=== PATIENT | male | born 1940 | race Caucasian/White ===

== ENCOUNTER 2019-07-23 11:55 | Inpatient (IN) | payer OTHER ==
[2019-07-23 15:45] VITALS: BMI 24.0
--- NOTE | 2019-07-23 17:11 | HP ---
CIWA Score Nausea/Vomitin-No Nausea/No Vomiting Muscle Tremors: 5 Anxiety: 4-Mod. Anxious/Guarded Agitation: 3 Paroxysmal Sweats: 1-Minimal Palms Moist Orientation: 0-Oriented Tacttile Disturbances: 1-Very Mild Itch/Numbness (itching b/l calves) Auditory Disturbances: 0-None Visual Disturbances: 2-Mild Sensitivity Headache: 0-None Present CIWA-Ar Total Score: 16 - Admission Criteria OASAS Guidelines: Admission for Medically Managed Detox: Requires at least one of the followin. CIWA greater than 12 2. Seizures within the past 24 hours 3. Delirium tremens within the past 24 hours 4. Hallucinations within the past 24 hours 5. Acute intervention needed for co occurring medical disorder 6. Acute intervention needed for co occurring psychiatric disorder 7. Severe withdrawal that cannot be handled at a lower level of care (continued vomiting, continued diarrhea, abnormal vital signs) requiring intravenous medication and/or fluids 8. Admission [facility] Chief Complaint: detox from EtOH Allergies/Adverse Reactions: Allergies Allergy/AdvReac Type Severity Reaction Status Date / Time penicillin V [Penicillin V] AdvReac Mild Hives Verified 07/23/19 15:39 History of Present Illness: 78M w/ pmh of DM, HTN presenting to [facility] for detox from EtOH. Was seen at [facility] 2d prior for fall after intake of vodka + klonopin, +LOC, expressing SI. Was recommended to go to detox. Drinks 1.5pint vodka every 2d for 1-2mo. Last drink ~2300 yesterday. Drinks after breakfast. First drink at 17y/o. Regular drinker since 42yo. Klonopin TID(2mg) rx for a "long time". Distant MJ usage. Denies heroin, opoids, IVDU. Smoked 1ppd, but quit 7ys prior. Blacked out x30-40. Has developed tremors. Denies seizures. Last detox at [facility] 7-8ys prior. Denies SI, HI. Briefly incarcerated in 1960s for loitering. Did not take HTN meds for q5nafke. Locked out of his [place] apt which he was renting from his friend. Financial support through [employer]. Repeat BP 172/89, HR 84 - Ebola screening Have you traveled outside of the country in the last 21 days: No Have you had contact with anyone from an Ebola affected area: No Do you have a fever: No - Review of Systems Constitutional: Weight Stable EENT: denies: Recent change in vision Respiratory: reports: Shortness of Breath (with walking >1block). denies: Cough Cardiac: denies: Chest Pain, Palpitations, Chest Tightness GI: denies: Abdominal Distended, Constipated, Diarrhea, Nausea, Vomiting : denies: Dysuria, Urgency Musculoskeletal: reports: Back Pain Neuro: denies: Headache, Seizure Patient History - Patient Medical History Hx Anemia: No Hx Asthma: No Hx Chronic Obstructive Pulmonary Disease (COPD): No Hx Cancer: No Hx Cardiac Disorders: No Hx Congestive Heart Failure: No Hx Hypertension: Yes (currently on treatment) Hx Hypercholesterolemia: No Hx Pacemaker: No HX Cerebrovascular Accident: No Hx Seizures: No Hx Dementia: No Hx Diabetes: Yes (NIDDM) Hx Gastrointestinal Disorders: Yes Hx Liver Disease: No Hx Genitourinary Disorders: No Hx Sexually Transmitted Disorders: Yes (gonorrhea) Hx Renal Disease (ESRD): No Hx Thyroid Disease: No Hx Human Immunodeficiency Virus (HIV): No (negative in 1992) Hx Hepatitis C: No Hx Depression: Yes (currently on treatment) Hx Suicide Attempt: No Hx Bipolar Disorder: No Hx Schizophrenia: No - Patient Surgical History Past Surgical History: Yes Hx Neurologic Surgery: No Hx Cataract Extraction: No Hx Cardiac Surgery: No Hx Lung Surgery: No Hx Breast Surgery: No Hx Breast Biopsy: No Hx Abdominal Surgery: No Hx Appendectomy: No Hx Cholecystectomy: No Hx Genitourinary Surgery: No Hx Section: No Hx Orthopedic Surgery: Yes (tonsillectomy at age of 16 years) Other Surgical History: TONSILLECTOMY Anesthesia Reaction: No - PPD History Date: 08/25/12 Results: 0 MM - Smoking Cessation Smoking history: Former smoker Have you smoked in the past 12 months: Yes Aproximately how many cigarettes per day: 20 Hx Chewing Tobacco Use: No Initiated information on smoking cessation: No - Substances abused Alcohol Substance route: Oral Frequency: Daily Amount used: 1-2 pints Vodka Age of first use: 17 Date of last use: 07/22/19 Admission Physical Exam BHS - Vital Signs Vital Signs: Vital Signs - 24 hr 07/23/19 07/23/19 15:35 16:39 Temperature 98.6 F 98.6 F Pulse Rate 92 H 92 H Respiratory 18 18 Rate Blood Pressure 199/89 H 199/89 H - Physical General Appearance: Yes: Thin, Tremorous. No: Intoxicated HEENTM: No: Pale Conjunctivae R, Pale Conjunctivae L, Scleral Ictenus R, Scleral Ictenus L Respiratory: Yes: Chest Non-Tender, Lungs Clear, No Respiratory Distress, No Accessory Muscle Use Neck: Yes: Supple, Trachea in good position Cardiology: Yes: Regular Rate, S1, S2. No: Irregularly Irregular Abdominal: Yes: Soft. No: Distended, Tenderness Musculoskeletal: Yes: full range of Motion Extremities: No: Calf Tenderness Neurological: Yes: Fully Oriented, Alert Integumentary: Yes: Dry, Warm Breathalyzer - Breathalyzer Breathalyzer: 0 Urine Drug Screen - Test Device Lot number: [id number] Expiration date: 04/03/21 - Control Is test valid?: Yes - Results Drug screen NEGATIVE: Yes Inpatient Rehab Admission - Rehab Decision to Admit Inpatient rehab admission?: No
--- NOTE | 2019-07-23 17:31 | PN ---
"Teaching Attending Note Name of Resident: Bubba Mulligan ATTENDING PHYSICIAN STATEMENT I saw and evaluated the patient. I reviewed the resident's note and discussed the case with the resident. I agree with the resident's findings and plan as documented. SUBJECTIVE: 78 M here requesting detox for etoh use , reports 1.5 pint vodka every 2 days for the last 1-2 months , reports numerous blackouts after taking klonopin as well , taken to [facility] , denies pain at this time , latest use yesterday evening , reports tremors if not drinking , denies seizures, starts drinking in the mornings. Prior detox [facility] 7- 8 yrs ago cannabis use in the past quit tobacco 7 years ago pmhx : DM, HTN , seen at [facility] 2d prior for fall and expressing SI, denies current SI / HI . reports non compliance w/ BP meds Repeat BP 172/89, HR 84 OBJECTIVE: wnwd , anxious , agitated , tremulous CIWA=16 Search Terms: jean-claude phipps, 1940 Search Date: 07/23/2019 05:29:25 PM The Drug Utilization Report below displays all of the controlled substance prescriptions, if any, that your patient has filled in the last twelve months. The information displayed on this report is compiled from pharmacy submissions to the Department, and accurately reflects the information as submitted by the pharmacies. This report was requested by: Katia Montes | Reference #: [id number] Others' Prescriptions Patient Name: Jean-Claude Phipps Date: 1940 Address: [place] [address] Sex: Male Rx Written Rx Dispensed Drug Quantity Days Supply Prescriber Name 07/11/2019 07/12/2019 clonazepam 0.5 mg tablet 90 30 Shannon Hutton MD 06/13/2019 06/13/2019 clonazepam 0.5 mg tablet 90 30 Shannon Hutton MD 05/12/2019 05/15/2019 clonazepam 0.5 mg tablet 90 30 Shannon Hutton MD 04/15/2019 04/15/2019 clonazepam 0.5 mg tablet 90 30 Shannon Hutton MD 03/15/2019 03/16/2019 clonazepam 0.5 mg tablet 90 30 Shannon Hutton MD 01/15/2019 02/13/2019 clonazepam 0.5 mg tablet 90 30 BarthvivianaShannon MD 01/10/2019 01/14/2019 clonazepam 0.5 mg tablet 90 30 BarthvivianaShannon MD 12/15/2018 12/16/2018 clonazepam 0.5 mg tablet 90 30 BarthvivianaShannon MD 11/14/2018 11/15/2018 clonazepam 0.5 mg tablet 90 30 AnniShannon MD 10/15/2018 10/15/2018 clonazepam 0.5 mg tablet 90 30 BarthvivianaShannon MD 09/14/2018 09/14/2018 clonazepam 0.5 mg tablet 90 30 AnniShannon MD 08/14/2018 08/14/2018 clonazepam 0.5 mg tablet 90 30 Shannon Hutton MD ASSESSMENT AND PLAN: ETOH abuse d/o - Librium taper . Meds verified w/ pharmacy"
[2019-07-23] MEDS ORDERED: MAG HYDROX/AL HYDROX/SIMETH 30 ML UNIT-DOSE CUP PO PRN (18:01)
[2019-07-23] MEDS ORDERED: hydrOXYzine PAMOATE 25 MG CAPSULE (FP) PO PRN (18:01)
[2019-07-23] MEDS ORDERED: MENTHOL/PHENOL 1 EACH UD MM PRN (18:01)
[2019-07-23] MEDS ORDERED: MAGNESIUM CITRATE 300 ML BOTTLE PO PRN (18:01)
[2019-07-23] MEDS ORDERED: METHOCARBAMOL 500 MG TABLET PO PRN (18:01)
[2019-07-23] MEDS ORDERED: chlordiazePOXIDE HCL 25 MG CAPSULE PO ONE (18:01)
[2019-07-23] MEDS ORDERED: chlordiazePOXIDE HCL 10 MG CAPSULE PO PRN (18:01)
[2019-07-23] MEDS ORDERED: ACETAMINOPHEN 325 MG TABLET (FP) PO PRN ×2 (18:01)
[2019-07-23] MEDS ORDERED: MAGNESIUM HYDROX 2400MG/30ML ORAL SUSPENSION 30 ML CUP PO PRN (18:01)
[2019-07-23] MEDS: ASPIRIN COATED 81 MG TABLET.EC PO SCH (19:57)
[2019-07-23] MEDS: chlordiazePOXIDE HCL 25 MG CAPSULE PO SCH (22:42)
[2019-07-23] MEDS: MELATONIN 5 MG TABLETS PO PRN (22:42)
[2019-07-23] MEDS: THIAMINE HCL 100 MG TABLET (FP) PO SCH (22:42)
[2019-07-23] MEDS: ATORVASTATIN CA 10 MG TABLET (FP) PO SCH (22:42)
[2019-07-23] MEDS: FUROSEMIDE 20 MG TABLET (FP) PO SCH (23:07)
[2019-07-23] MEDS: ATENOLOL 25 MG TABLET (FP) PO SCH (23:08)
[2019-07-24] MEDS: MELATONIN 5 MG TABLETS PO PRN (00:50)
[2019-07-24] MEDS: chlordiazePOXIDE HCL 25 MG CAPSULE PO SCH ×3 (05:34→22:34)
[2019-07-24] MEDS: hydrALAZINE HCL 25 MG TABLET (FP) PO SCH ×4 (07:00→22:34)
[2019-07-24] MEDS: ATENOLOL 25 MG TABLET (FP) PO SCH ×2 (09:18→22:34)
[2019-07-24] MEDS: HYDROCHLOROTHIAZIDE 12.5 MG CAPSULE (FP) PO SCH (09:18)
[2019-07-24] MEDS: amLODIPine BESYLATE 10 MG TABLET (FP) PO SCH (09:18)
[2019-07-24] MEDS: PRENATAL VITAMINS W/ FOLIC ACID TABLET (FP) PO SCH (09:18)
[2019-07-24] MEDS: ASPIRIN COATED 81 MG TABLET.EC PO SCH (09:19)
[2019-07-24] MEDS: BISMUTH SUBSALICYLATE 524 MG/30 ML UD PO PRN (09:19)
[2019-07-24] MEDS: LOSARTAN POTASSIUM 50 MG TABLET (FP) PO SCH (09:19)
[2019-07-24] MEDS ORDERED: PATIENT'S OWN MEDICATION (NON-FORMULARY) (Losartan/Hydrochlorothiazide [Losartan-Hctz 100- PO SCH (10:00)
--- NOTE | 2019-07-24 10:05 | CONSULT ---
[facility] Psychiatric Consult - Data Date of interview: 07/24/19 Admission source: [facility] Identifying data: Patient is a 78 year old single male, without children, unemployed, and homeless. This is patient's first admission to detox at [facility]. Patient admitted to for alcohol dependence. Substance Abuse History: - Smoking Cessation. Smoking history: Former smoker. Have you smoked in the past 12 months: Yes. Aproximately how many cigarettes per day: 20. Hx Chewing Tobacco Use: No. Initiated information on smoking cessation: No. - Substances abused. Alcohol. Substance route: Oral. Frequency: Daily. Amount used: 1-2 pints Vodka. Age of first use: 17. Date of last use: 07/22/19 Medical History: hypertension, diabetes, gonorrhea, tonsillectomy Psychiatric History: Patient reports history of multiple psychiatric hospitalizations ([facility], [facility], and a state facility in [place]) secondary to lack of housing but states that he is suicidal so that he can be admitted. Stated that he was living in [facility] but decided to leave a couple days ago due to his disappointment with the facility. He reports being prescribed remeron 45mg HS but has not taken the medication in several days. Patient denies history of suicide attempt, auditory/ visual hallucinations and paranoid ideation. At present patient reports stable mood but is experiencing difficulty sleeping. Physical/Sexual Abuse/Trauma History: denies. Mental Status Exam - Mental Status Exam Alert and Oriented to: Time, Place, Person Cognitive Function: Good Patient Appearance: Well Groomed Mood: Euthymic Affect: Mood Congruent Patient Behavior: Cooperative Speech Pattern: Appropriate Voice Loudness: Normal Thought Process: Goal Oriented Thought Disorder: Not Present Hallucinations: Denies Suicidal Ideation: Denies Homicidal Ideation: Denies Insight/Judgement: Poor Sleep: Poorly Appetite: Fair Muscle strength/Tone: Normal Gait/Station: Normal Psychiatric Findings - Problem List ([place] 1, 2,3) (1) Alcohol-induced mood disorder Current Visit: Yes Status: Suspected (2) Alcohol dependence Current Visit: Yes Status: Acute (3) Alcohol-induced sleep disorder Current Visit: Yes Status: Acute - Initial Treatment Plan Initial Treatment Plan: Psychoeducation provided. Rehab in progress. Will order Remeron 15mg HS. Benefits and side effects discussed. Verbal consent given.
[2019-07-24 10:10] LABS: HEMATOCRIT 32.5 % (35.4-49); HEMOGLOBIN 11.2 GM/dL (11.7-16.9); MCH 29.4 pg (25.7-33.7); MCHC 34.5 g/dl (32.0-35.9); MEAN CELL VOLUME 85.3 fl (80-96); MEAN PLT VOLUME 9.2 fl (7.5-11.1); PLATELET COUNT 197 K/MM3 (134-434); RBC 3.81 M/mm3 (4.00-5.60); WHITE BLOOD COUNT 4.7 K/mm3 (4.0-10.0)
[2019-07-24 10:21] LABS: ALBUMIN 3.6 g/dl (3.4-5.0); BILIRUBIN,TOTAL 0.5 mg/dL (0.2-1); BLOOD UREA NITROGEN 17.6 mg/dL (7-18); CALCIUM 8.4 mg/dL (8.5-10.1); CREATININE 1.2 mg/dL (0.55-1.3); POTASSIUM 4.1 mmol/L (3.5-5.1); TOT PROT 6.6 g/dl (6.4-8.2)
--- NOTE | 2019-07-24 11:21 | PN ---
S CIWA - CIWA Score Nausea/Vomitin Muscle Tremors: 2 Anxiety: 2 Agitation: 2 Paroxysmal Sweats: 1-Minimal Palms Moist Orientation: 0-Oriented Tacttile Disturbances: 1-Very Mild Itch/Numbness Auditory Disturbances: 0-None Visual Disturbances: 0-None Headache: 2-Mild CIWA-Ar Total Score: 12 BHS Progress Note (SOAP) Subjective: alert,irritable,anxious,tremor,pain in body Objective: 07/24/19 11:20 Vital Signs Temperature 98.2 F 07/24/19 09:45 Pulse Rate 76 07/24/19 09:45 Respiratory Rate 18 07/24/19 09:45 Blood Pressure 141/79 07/24/19 09:45 O2 Sat by Pulse Oximetry (%) Laboratory Last Values WBC 4.7 K/mm3 (4.0-10.0) 07/24/19 07:00 RBC 3.81 M/mm3 (4.00-5.60) L 07/24/19 07:00 Hgb 11.2 GM/dL (11.7-16.9) L 07/24/19 07:00 Hct 32.5 % (35.4-49) L 07/24/19 07:00 MCV 85.3 fl (80-96) 07/24/19 07:00 MCH 29.4 pg (25.7-33.7) 07/24/19 07:00 MCHC 34.5 g/dl (32.0-35.9) 07/24/19 07:00 RDW 14.0 % (11.9-15.9) 07/24/19 07:00 Plt Count 197 K/MM3 (134-434) 07/24/19 07:00 MPV 9.2 fl (7.5-11.1) 07/24/19 07:00 Sodium 137 mmol/L (136-145) 07/24/19 07:00 Potassium 4.1 mmol/L (3.5-5.1) 07/24/19 07:00 Chloride 104 mmol/L (98-107) 07/24/19 07:00 Carbon Dioxide 28 mmol/L (21-32) 07/24/19 07:00 Anion Gap 5 MMOL/L (8-16) L 07/24/19 07:00 BUN 17.6 mg/dL (7-18) 07/24/19 07:00 Creatinine 1.2 mg/dL (0.55-1.3) 07/24/19 07:00 Est GFR (CKD-EPI)AfAm 66.73 07/24/19 07:00 Est GFR (CKD-EPI)NonAf 57.57 07/24/19 07:00 POC Glucometer 127 UNITS (80-120) 07/24/19 05:32 Random Glucose 134 mg/dL (74-106) H 07/24/19 07:00 Calcium 8.4 mg/dL (8.5-10.1) L 07/24/19 07:00 Total Bilirubin 0.5 mg/dL (0.2-1) 07/24/19 07:00 AST 21 U/L (15-37) 07/24/19 07:00 ALT 30 U/L (13-61) 07/24/19 07:00 Alkaline Phosphatase 59 U/L (45-117) 07/24/19 07:00 Total Protein 6.6 g/dl (6.4-8.2) 07/24/19 07:00 Albumin 3.6 g/dl (3.4-5.0) 07/24/19 07:00 Assessment: 07/24/19 11:21 withdrawal symptom Plan: continue detox librium regimen,bgm monitoring
--- NOTE | 2019-07-24 14:14 | EKG ---
Test Reason : Blood Pressure : / mmHG Vent. Rate : 081 BPM Atrial Rate : 081 BPM P-R Int : 164 ms QRS Dur : 142 ms QT Int : 424 ms P-R-T Axes : 065 259 045 degrees QTc Int : 492 ms SINUS RHYTHM WITH FREQUENT PREMATURE VENTRICULAR COMPLEXES RIGHT BUNDLE BRANCH BLOCK ABNORMAL ECG NO PREVIOUS ECGS AVAILABLE Confirmed by ZAHIRA BARRY MD ([id number]) on 07/24/2019 2:14:10 PM Referred By: Confirmed By:ZAHIRA BARRY MD
[2019-07-24] MEDS: FUROSEMIDE 20 MG TABLET (FP) PO SCH ×2 (15:49→22:34)
[2019-07-24] MEDS ORDERED: PSYLLIUM 5.85 GM PACKET PO SCH (21:15)
[2019-07-24] MEDS ORDERED: MIRTAZAPINE 30 MG TABLET (FP) PO SCH (22:00)
[2019-07-24] MEDS: ATORVASTATIN CA 10 MG TABLET (FP) PO SCH (22:34)
[2019-07-24] MEDS: MIRTAZAPINE 15 MG TABLET (FP) PO SCH (22:34)
[2019-07-24] MEDS: THIAMINE HCL 100 MG TABLET (FP) PO SCH (22:34)
[2019-07-24] MEDS: PSYLLIUM 5.85 GM PACKET PO SCH (23:17)
--- NOTE | 2019-07-25 05:12 | PN ---
BHS Progress Note Note: Was c/o loose, watery stools unrelated to withdrawal. States at home takes fiber when this occurs and is very effective. Abd distended, soft/NT/BS+. Denies vomiting. Plan: metamucil in q.a.m. and reeval
[2019-07-25] MEDS: chlordiazePOXIDE 5 MG CAPSULE PO SCH ×3 (06:10→23:00)
[2019-07-25] MEDS: hydrALAZINE HCL 25 MG TABLET (FP) PO SCH ×3 (06:10→22:59)
[2019-07-25] MEDS: HYDROCHLOROTHIAZIDE 12.5 MG CAPSULE (FP) PO SCH (10:13)
[2019-07-25] MEDS: ATENOLOL 25 MG TABLET (FP) PO SCH ×2 (10:13→22:59)
[2019-07-25] MEDS: LOSARTAN POTASSIUM 50 MG TABLET (FP) PO SCH (10:13)
[2019-07-25] MEDS: PRENATAL VITAMINS W/ FOLIC ACID TABLET (FP) PO SCH (10:13)
[2019-07-25] MEDS: amLODIPine BESYLATE 10 MG TABLET (FP) PO SCH (10:13)
[2019-07-25] MEDS: ASPIRIN COATED 81 MG TABLET.EC PO SCH (10:13)
--- NOTE | 2019-07-25 11:03 | PN ---
S CIWA - CIWA Score Nausea/Vomitin-No Nausea/No Vomiting Muscle Tremors: None Anxiety: 3 Agitation: 2 Paroxysmal Sweats: 3 Orientation: 0-Oriented Tacttile Disturbances: 0-None Auditory Disturbances: 0-None Visual Disturbances: 0-None Headache: 2-Mild CIWA-Ar Total Score: 10 S Progress Note (SOAP) Subjective: c/o anxiety, headache, and sweats. Objective: 07/25/19 11:02 Vital Signs 07/25/19 07/25/19 07/25/19 03:30 06:00 09:38 Temperature 97.7 F 97.3 F L Pulse Rate 70 67 Respiratory 18 18 18 Rate Blood Pressure 110/55 L 130/66 Lab Results WBC 4.7 K/mm3 (4.0-10.0) 07/24/19 07:00 RBC 3.81 M/mm3 (4.00-5.60) L 07/24/19 07:00 Hgb 11.2 GM/dL (11.7-16.9) L 07/24/19 07:00 Hct 32.5 % (35.4-49) L 07/24/19 07:00 MCV 85.3 fl (80-96) 07/24/19 07:00 MCHC 34.5 g/dl (32.0-35.9) 07/24/19 07:00 RDW 14.0 % (11.9-15.9) 07/24/19 07:00 Plt Count 197 K/MM3 (134-434) 07/24/19 07:00 Sodium 137 mmol/L (136-145) 07/24/19 07:00 Potassium 4.1 mmol/L (3.5-5.1) 07/24/19 07:00 Chloride 104 mmol/L (98-107) 07/24/19 07:00 Carbon Dioxide 28 mmol/L (21-32) 07/24/19 07:00 Anion Gap 5 MMOL/L (8-16) L 07/24/19 07:00 BUN 17.6 mg/dL (7-18) 07/24/19 07:00 Creatinine 1.2 mg/dL (0.55-1.3) 07/24/19 07:00 Random Glucose 134 mg/dL (74-106) H 07/24/19 07:00 Calcium 8.4 mg/dL (8.5-10.1) L 07/24/19 07:00 Labs noted. Assessment: 07/25/19 11:02 AOX3, in no acute distress. Full ROM, ambulating in the unit. Withdrawal symptoms. Plan: continue detox.
[2019-07-25] MEDS: FUROSEMIDE 20 MG TABLET (FP) PO SCH ×2 (12:51→23:41)
[2019-07-25] MEDS: BISMUTH SUBSALICYLATE 524 MG/30 ML UD PO PRN (14:21)
[2019-07-25] MEDS: PSYLLIUM 5.85 GM PACKET PO SCH (16:05)
[2019-07-25] MEDS: IBUPROFEN 400 MG TABLET (FP) PO PRN (17:14)
[2019-07-25] MEDS: MIRTAZAPINE 15 MG TABLET (FP) PO SCH (22:59)
[2019-07-25] MEDS: ATORVASTATIN CA 10 MG TABLET (FP) PO SCH (22:59)
[2019-07-25] MEDS: THIAMINE HCL 100 MG TABLET (FP) PO SCH (22:59)
[2019-07-26] MEDS ORDERED: chlordiazePOXIDE HCL 10 MG CAPSULE PO PRN
[2019-07-26] MEDS: hydrALAZINE HCL 25 MG TABLET (FP) PO SCH ×3 (06:17→22:08)
[2019-07-26] MEDS: chlordiazePOXIDE HCL 10 MG CAPSULE PO SCH ×3 (06:18→22:07)
[2019-07-26] MEDS: IBUPROFEN 400 MG TABLET (FP) PO PRN ×3 (07:04→20:58)
[2019-07-26] MEDS: amLODIPine BESYLATE 10 MG TABLET (FP) PO SCH (10:21)
[2019-07-26] MEDS: ASPIRIN COATED 81 MG TABLET.EC PO SCH (10:21)
[2019-07-26] MEDS: PSYLLIUM 5.85 GM PACKET PO SCH (10:21)
[2019-07-26] MEDS: ATENOLOL 25 MG TABLET (FP) PO SCH ×2 (10:21→23:31)
[2019-07-26] MEDS: LOSARTAN POTASSIUM 50 MG TABLET (FP) PO SCH (10:21)
[2019-07-26] MEDS: PRENATAL VITAMINS W/ FOLIC ACID TABLET (FP) PO SCH (10:21)
[2019-07-26] MEDS: HYDROCHLOROTHIAZIDE 12.5 MG CAPSULE (FP) PO SCH (10:21)
[2019-07-26] MEDS: FUROSEMIDE 20 MG TABLET (FP) PO SCH ×2 (13:05→22:09)
--- NOTE | 2019-07-26 15:20 | PN ---
[facility] CIWA - CIWA Score Nausea/Vomitin-No Nausea/No Vomiting Muscle Tremors: None Anxiety: 3 Agitation: 2 Paroxysmal Sweats: 2 Orientation: 0-Oriented Tacttile Disturbances: 0-None Auditory Disturbances: 0-None Visual Disturbances: 0-None Headache: 0-None Present CIWA-Ar Total Score: 7 S Progress Note (SOAP) Subjective: Body ache, interrupted sleep Objective: 07/26/19 15:15 Last Vital Signs Temp Pulse Resp BP Pulse Ox 98.2 F 73 18 127/62 07/26/19 13:21 07/26/19 13:21 07/26/19 13:21 07/26/19 13:21 Laboratory Tests 07/23/19 07/24/19 07/24/19 18:29 05:32 07:00 WBC 4.7 RBC 3.81 L Hgb 11.2 L Hct 32.5 L MCV 85.3 MCH 29.4 MCHC 34.5 RDW 14.0 Plt Count 197 MPV 9.2 Sodium Potassium Chloride Carbon Dioxide Anion Gap BUN Creatinine Est GFR (CKD-EPI)AfAm Est GFR (CKD-EPI)NonAf POC Glucometer 130 127 Random Glucose Calcium Total Bilirubin AST ALT Alkaline Phosphatase Total Protein Albumin RPR Titer 07/24/19 07/24/19 07/24/19 07:00 07:00 16:55 WBC RBC Hgb Hct MCV MCH MCHC RDW Plt Count MPV Sodium 137 Potassium 4.1 Chloride 104 Carbon Dioxide 28 Anion Gap 5 L BUN 17.6 Creatinine 1.2 Est GFR (CKD-EPI)AfAm 66.73 Est GFR (CKD-EPI)NonAf 57.57 POC Glucometer 182 Random Glucose 134 H Calcium 8.4 L Total Bilirubin 0.5 AST 21 ALT 30 Alkaline Phosphatase 59 Total Protein 6.6 Albumin 3.6 RPR Titer Nonreactive 07/25/19 07/26/19 06:09 06:16 WBC RBC Hgb Hct MCV MCH MCHC RDW Plt Count MPV Sodium Potassium Chloride Carbon Dioxide Anion Gap BUN Creatinine Est GFR (CKD-EPI)AfAm Est GFR (CKD-EPI)NonAf POC Glucometer 164 180 Random Glucose Calcium Total Bilirubin AST ALT Alkaline Phosphatase Total Protein Albumin RPR Titer Labs reviewed: hyperglycemia r/t DM, mild anemia note Assessment: 07/26/19 15:16 Withdrawal sxs Mild anemia and hyperglycemia r/t DM Plan: Continue detox Encouraged PO water intake Scheduled for discharge tomorrow Mild anemia: most likely due to alcoholism, encouraged abstinence, follow up with PCP for management DMT2 with hyperglycemia: continue diabetic regimen, follow up with PCP for management of all medical problems
[2019-07-26 22:00] VITALS: TEMP 97.7
[2019-07-26] MEDS: ATORVASTATIN CA 10 MG TABLET (FP) PO SCH (22:07)
[2019-07-26] MEDS: MIRTAZAPINE 15 MG TABLET (FP) PO SCH (22:08)
[2019-07-26] MEDS: THIAMINE HCL 100 MG TABLET (FP) PO SCH (22:08)
[2019-07-27] MEDS ORDERED: chlordiazePOXIDE HCL 10 MG CAPSULE PO ONE (05:00)
[2019-07-27] MEDS: hydrALAZINE HCL 25 MG TABLET (FP) PO SCH (05:44)
[2019-07-27 06:50] VITALS: BP 118/55; PULSE 73
--- NOTE | 2019-07-27 09:21 | DS ---
[facility] Detox Discharge Summary Admission Date: 07/23/19 Discharge Date: 07/27/19 - History Present History: Alcohol Dependence - Physical Exam Results Vital Signs: Vital Signs Temperature 97.7 F 07/27/19 06:00 Pulse Rate 73 07/27/19 06:00 Respiratory Rate 18 07/27/19 06:00 Blood Pressure 118/55 L 07/27/19 06:00 O2 Sat by Pulse Oximetry (%) Pertinent Admission Physical Exam Findings: [facility] Laboratory Tests 07/23/19 07/24/19 07/24/19 18:29 05:32 07:00 WBC 4.7 RBC 3.81 L Hgb 11.2 L Hct 32.5 L MCV 85.3 MCH 29.4 MCHC 34.5 RDW 14.0 Plt Count 197 MPV 9.2 Sodium Potassium Chloride Carbon Dioxide Anion Gap BUN Creatinine Est GFR (CKD-EPI)AfAm Est GFR (CKD-EPI)NonAf POC Glucometer 130 127 Random Glucose Calcium Total Bilirubin AST ALT Alkaline Phosphatase Total Protein Albumin RPR Titer 07/24/19 07/24/19 07/24/19 07:00 07:00 16:55 WBC RBC Hgb Hct MCV MCH MCHC RDW Plt Count MPV Sodium 137 Potassium 4.1 Chloride 104 Carbon Dioxide 28 Anion Gap 5 L BUN 17.6 Creatinine 1.2 Est GFR (CKD-EPI)AfAm 66.73 Est GFR (CKD-EPI)NonAf 57.57 POC Glucometer 182 Random Glucose 134 H Calcium 8.4 L Total Bilirubin 0.5 AST 21 ALT 30 Alkaline Phosphatase 59 Total Protein 6.6 Albumin 3.6 RPR Titer Nonreactive 07/25/19 07/26/19 07/26/19 06:09 06:16 17:11 WBC RBC Hgb Hct MCV MCH MCHC RDW Plt Count MPV Sodium Potassium Chloride Carbon Dioxide Anion Gap BUN Creatinine Est GFR (CKD-EPI)AfAm Est GFR (CKD-EPI)NonAf POC Glucometer 164 180 166 Random Glucose Calcium Total Bilirubin AST ALT Alkaline Phosphatase Total Protein Albumin RPR Titer 07/27/19 05:42 WBC RBC Hgb Hct MCV MCH MCHC RDW Plt Count MPV Sodium Potassium Chloride Carbon Dioxide Anion Gap BUN Creatinine Est GFR (CKD-EPI)AfAm Est GFR (CKD-EPI)NonAf POC Glucometer 177 Random Glucose Calcium Total Bilirubin AST ALT Alkaline Phosphatase Total Protein Albumin RPR Titer pt is aaox3 ambulating no acute distress no s/s of withdrawals - Treatment Hospital Course: Detox Protocol Followed, Detoxed Safely, Responded well, Discharged Condition Good, Rehab Referral Accepted Patient has Accepted a Rehab Referral to: pt declined rehab; referr - Medication Discharge Medications: Ambulatory Orders Atenolol 25 mg PO BID 04/01/12 Mirtazapine [Remeron] 45 mg PO HS 04/01/12 Metformin HCl [Metformin HCl ER] 850 mg PO BID 04/02/12 Amlodipine Besylate [Norvasc] 10 mg PO DAILY 11/17/12 Aspirin Coated [Ecotrin] 81 mg PO DAILY 11/17/12 Atorvastatin Ca [Lipitor] 10 mg PO HS 07/23/19 Furosemide 20 mg PO BID 07/23/19 Hydralazine HCl 25 mg PO TID 07/23/19 Losartan/Hydrochlorothiazide [Losartan-Hctz 100-12.5 mg Tab] 100 each PO DAILY 07/23/19 - Diagnosis (1) Alcohol dependence Current Visit: Yes Status: Acute (2) Alcohol-induced sleep disorder Current Visit: Yes Status: Acute (3) Alcohol-induced mood disorder Current Visit: Yes Status: Suspected (4) DM Diabetes mellitus type 2 Current Visit: No Status: Active (5) Essential hypertension Current Visit: No Status: Active (6) anxiety and depression Current Visit: No Status: Active - AMA Did Patient Leave Against Medical Advice: No
== END 2019-07-27 09:42 | disposition home or self-care (01) | DRG 897 ==
LOC: YASAS 11:55 → Y6N 18:23
PROVIDERS: ADMIT Surgery; ATTEND Surgery
PROC: HZ2ZZZZ Detoxification Services for Substance Abuse Treatment (ICD-10-PCS; principal; 2019-07-23)
DX: F10.230 Alcohol dependence with withdrawal, uncomplicated (principal); F10.282 Alcohol dependence with alcohol-induced sleep disorder; F10.24 Alcohol dependence with alcohol-induced mood disorder; F41.8 Other specified anxiety disorders; F32.9 Major depressive disorder, single episode, unspecified; I10 Essential (primary) hypertension; E11.9 Type 2 diabetes mellitus without complications; Z79.84 Long term (current) use of oral hypoglycemic drugs; D64.9 Anemia, unspecified; Z86.19 Personal history of other infectious and parasitic diseases; Z88.0 Allergy status to penicillin; Z87.891 Personal history of nicotine dependence
CPT/HCPCS: 36415; 80053; 82962; 85027; 86593; 93005; 93010